=== PATIENT | female | born 1995 | race Caucasian/White ===

== ENCOUNTER 2024-08-09 12:21 | Emergency (ER) | payer OTHER ==
[2024-08-09 12:38] VITALS: BP 144/97; PULSE 78; RESP 18; TEMP 98.2; BMI 27.3
[2024-08-09] MEDS ORDERED: METHOCARBAMOL 500 MG TABLET ONE (13:36)
[2024-08-09] MEDS ORDERED: IBUPROFEN 400 MG TABLET (FP) PO ONE (13:36)
[2024-08-09] MEDS ORDERED: ACETAMINOPHEN 325 MG TABLET (FP) ONE (13:36)
[2024-08-09] MEDS ORDERED: LIDOCAINE 5% TOPICAL PATCH ONE (13:36)
[2024-08-09] MEDS: ACETAMINOPHEN 325 MG TABLET (FP) PO ONE (13:49)
[2024-08-09] MEDS: IBUPROFEN 400 MG TABLET (FP) PO ONE (13:49)
[2024-08-09] MEDS: LIDOCAINE 5% TOPICAL PATCH TP ONE (13:49)
[2024-08-09] MEDS: METHOCARBAMOL 500 MG TABLET PO ONE (13:49)
[2024-08-09] MEDS ORDERED: LIDOCAINE PATCH REMOVAL MC ONE (22:00)
== END 2024-08-09 15:27 | disposition home or self-care (01) ==
LOC: FER 12:21
DX: M54.50 Low back pain, unspecified (principal)
CPT/HCPCS: 72100-TC-FY; 81025; 99284-25